=== PATIENT | male | born 1985 | race Caucasian/White ===

== ENCOUNTER 2018-03-07 14:53 | Emergency (ER) | payer OTHER ==
[2018-03-07 15:07] VITALS: BMI 24.1
[2018-03-07 15:09] VITALS: BP 115/70; PULSE 60; TEMP 98; O2SAT 97
--- NOTE | 2018-03-07 15:30 | ED PDOC ---
Arrival/HPI - General Historian: Patient - History of Present Illness Time/Duration: < week Symptom Course: Improving - General Chief Complaint: Eye Problem Time Seen by Provider: 03/07/18 14:56 - History of Present Illness Narrative History of Present Illness (Text): 03/07/18 15:28 Patient is a 32 year old male with no significant past medical history who presents to the emergency department for right eye swelling that started 6 days ago. Patient states that the eye swelling is worse in the morning and gets better throughout the day. He has been using eye drops which give him relief however the eye swelling never completely goes away. Also states that he had a rash above his right eyebrow that resolved with cortisone cream. Denies any fevers/chills, headaches, dizziness, eye pain, eye itchiness, drainage or change in tear production. Denies using soaps or cleansers to wash his face. (Loyda Louie) Past Medical History - Provider Review Nursing Documentation Reviewed: Yes - Infectious Disease Hx of Infectious Diseases: None - Cardiac Hx Cardiac Disorders: No - Pulmonary Hx Respiratory Disorders: No - Neurological Hx Neurological Disorder: Yes Hx Meningitis: Yes - HEENT Hx HEENT Disorder: No - Renal Hx Renal Disorder: No - Endocrine/Metabolic Hx Endocrine Disorders: No - Hematological/Oncological Hx Blood Disorders: No - Integumentary Hx Dermatological Disorder: No - Musculoskeletal/Rheumatological Hx Musculoskeletal Disorders: No - Gastrointestinal Hx Gastrointestinal Disorders: No - Genitourinary/Gynecological Hx Genitourinary Disorders: No - Psychiatric Hx Psychophysiologic Disorder: No Hx Substance Use: No Family/Social History - Physician Review Nursing Documentation Reviewed: Yes Family/Social History: Diabetes, Hypertension Smoking Status: Unknown If Ever Smoked Hx Alcohol Use: No Hx Substance Use: No Allergies/Home Meds Allergies/Adverse Reactions: Allergies No Known Allergies Allergy (Verified 03/07/18 15:08) Home Medications: Home Meds Medication Instructions Recorded Confirmed No Known Home Med 03/07/18 03/07/18 Review of Systems - Review of Systems Constitutional: Normal Eyes: Normal. absent: Vision Changes, Photophobia, Eye Pain ENT: Normal. absent: Hearing Changes Respiratory: Normal. absent: SOB, Cough, Wheezing Cardiovascular: Normal. absent: Chest Pain, Palpitations Gastrointestinal: Normal. absent: Abdominal Pain Genitourinary Male: Normal Musculoskeletal: Normal Skin: Normal Neurological: Normal Physical Exam Vital Signs Reviewed: Yes Temperature: Afebrile Blood Pressure: Normal Pulse: Regular Respiratory Rate: Normal Appearance: Positive for: Well-Appearing, Comfortable Mental Status: Positive for: Alert and Oriented X 3 - Systems Exam Head: Present: Atraumatic, Normocephalic, Other (Mild erythema over right eyebrow, non tender) Pupils: Present: PERRL Extroacular Muscles: Present: EOMI Conjunctiva: Present: Normal Ears: Present: Normal Mouth: Present: Moist Mucous Membranes Neck: Present: Normal Range of Motion Respiratory/Chest: Present: Clear to Auscultation, Respiratory Distress Cardiovascular: Present: Regular Rate and Rhythm, Normal S1, S2 Abdomen: Present: Tenderness. No: Distention Upper Extremity: Present: Normal Inspection Lower Extremity: Present: Normal Inspection Neurological: Present: CN II-XII Intact Skin: Present: Warm, Dry, Normal Color Psychiatric: Present: Alert, Oriented x 3 Vital Signs Temp Pulse Resp BP Pulse Ox 03/07/18 15:08 98.0 F 60 18 115/70 97 Medical Decision Making ED Course and Treatment: 03/07/18 15:30 Patient is a 32 year old male who presents with right eye swelling. On examination, right eye swelling not appreciated. There is area of mild erythema over his right eye brow. Will refer to dermatology. (Loyda Louie) Seen and examined with resident. 32 y/o M p/w swelling inferior to R eye. Denies vision change, redness, pain, discharge. On examination, swelling no appreciated, orbit appears normal. (Mayito Richard) Disposition/Present on Arrival - Present on Arrival Any Indicators Present on Arrival: No History of DVT/PE: No History of Uncontrolled Diabetes: No Urinary Catheter: No History of Decub. Ulcer: No History Surgical Site Infection Following: None - Disposition Have Diagnosis and Disposition been Completed?: Yes Disposition Time: 15:33 Patient Plan: Discharge - Disposition Diagnosis: Eye swelling, right Disposition: HOME/ ROUTINE Patient Problems: Current Active Problems Problem Status Onset Eye swelling, right Acute Condition: GOOD Additional Instructions: Keep eye clean, avoid anything that might irritate your eye Follow up with Dermatology within 1-2 days If having any eye pain, change in vision, worsening of symptoms, return to nearest ED Referrals: Jojo Bolton MD [Staff Provider] - Follow up with primary Forms: [employer] (Macedonian)
[2018-03-07 17:19] VITALS: RESP 16
== END 2018-03-07 16:02 | disposition home or self-care (01) ==
LOC: ED 14:53
DX: H57.8 Other specified disorders of eye and adnexa (principal)